=== PATIENT | male | born 1965 | race Two or more races ===

== ENCOUNTER → 2016-11-01 | Outpatient (CLI) | payer OTHER ==
[~2016-11-01] MED LIST: NORCO 5/325 TAB1 TAB PO; PREDNISONE PO; VICODIN 5/500 T1 TAB PO
[2016-11-01 13:50] LABS: BASOPHIL% 0.4 % (0-2.5); EOSINOPHIL# 0.4 X10e3 (0-0.7); EOSINOPHIL% 5.9 % (0.0-7.0); HEMATOCRIT 47.4 % (38.0-50.0); HEMOGLOBIN 15.7 gm/dL (13.0-16.0); LYMPHOCYTE# 1.4 X10e3 (1.0-3.5); LYMPHOCYTE% 18.6 % (17.0-45.0); MEAN CELL VOLUME 87.8 FL (83-96); MEAN CORPUSCULAR HEMOGLOBIN 29.1 PG (28-34); MEAN CORPUSCULAR HGB CONC 33.1 g/dL (30-36); MEAN PLATELET VOLUME 9.5 FL (6.5-11.5); MONOCYTE# 0.5 X10e3 (0-1.0); MONOCYTE% 6.4 % (3.0-12.0); NEUTROPHIL% 68.7 % (40-75); PLATELET COUNT 161 X10e3 (140-420); RED CELL DISTRIBUTION WIDTH 13.7 % (11.0-15.5); WHITE BLOOD COUNT 7.3 X10e3 (4.0-10.5)
[2016-11-01 13:51] LABS: DIFF IND NO
[2016-11-01 14:22] LABS: ALBUMIN SERUM 4.2 g/dL (3.5-5.0); BILIRUBIN,TOTAL 0.6 mg/dL (0.2-2.0); CALCIUM SERUM 9.4 mg/dL (8.4-10.2); CREATININE SERUM 0.8 mg/dL (0.6-1.4); GLOM FILT RATE Estimated 105.7 mL/min (>60); POTASSIUM 4.6 mmol/L (3.5-5.1); PROTEIN TOTAL SERUM 6.8 g/dL (6.0-8.3)
[2016-11-01 14:47] LABS: FOLATE (FOLIC ACID) 11.7 ng/mL (>5.8)
[2016-11-03 15:36] LABS: HA AB IGM (HEPPAN) Nonreactive (()); HB CORE AB IGM (HEPPAN) Nonreactive (Nonreactive); HB S AG (HEPPAN) Nonreactive (Nonreactive); HEP C AB (HEPPAN) Nonreactive (Nonreactive); HEP C AB SIGNAL TO CUTOFF 0.01 ratio (<1.00)
== END | disposition home or self-care (01) ==
LOC: CLAB 13:19
PROVIDERS: Nurse Practitioner
DX: H53.10 Unspecified subjective visual disturbances (principal); M54.2 Cervicalgia; R10.10 Upper abdominal pain, unspecified; R42 Dizziness and giddiness; Z13.220 Encounter for screening for lipoid disorders; Z13.29 Encounter for screening for other suspected endocrine disorder; Z13.6 Encounter for screening for cardiovascular disorders; Z11.3 Encounter for screening for infections with a predominantly sexual mode of transmission
CPT/HCPCS: 36415; 80053; 80061; 80074; 82607; 82746; 83036; 84443; 85025

== ENCOUNTER → 2016-11-23 | Outpatient (CLI) | payer OTHER ==
--- NOTE | ~2016-11-23 | CT17 ---
[facility] A Service of [facility] & [facility] RADIOLOGY TEXT RESULTS PATIENT: CLAIRE FRANKLIN LOCATION: [facility] : 69 UNIT #: [id number] AGE: [address]: JESSENIA TOTH SEX: M ORDER DR: [id number] [facility] [address] [place], [place] [address] [id number] O MR#: [id number] Acc #: [id number] NAME: CLAIRE FRANKLIN : 1965 SEX: M STUDY DATE/TIME: 11/23/2016 14:58 UNIT: [facility] ROOM: STUDY DESCRIPTION: CT Angio Head Attending Physician: Jessenia Toth Aprn Referring Physician: Jessenia Toth Aprn Ordering Physician: Jessenia Toth Aprn Primary Care Physician: Jessenia Toth Aprn MEDICAL IMAGING REPORT This report is preliminary unless electronic signature is present EXAM CT angiogram head and neck. HISTORY Visual disturbance. Vertigo and dizziness with standing for 2 years. Headache for 2 years. Head injury in [address] exam was performed with one or more of the following radiation dose reduction techniques: automatic exposure control, adjustment of mA and/or kV according to patient size, and iterative reconstruction. COMMENT CT angiogram of the head and neck vessels performed during the intravenous administration of 100 mL of Isovue-370. Imaging acquired in the axial plane followed by multiple reconstructed and reformatted images for the purpose of 3-D CT angiography of the head and neck vessels. Comparison head CT is from 11/23/2016. CT angiogram neck: The patient has bovine origin left common carotid artery. There is 0% stenosis suspected at great vessel origins from the arch. Assessment right carotid system shows about 20% diameter stenosis of proximal right internal carotid artery by NASCET criteria secondary to soft plaque. The right carotid siphon is widely patent. Evaluation of the left carotid system shows essentially 0% stenosis at the left carotid bifurcation. There is motion. The left carotid siphon is widely patent. Evaluation of the right vertebral artery shows vessel to be patent in the neck and intracranially. Evaluation of the left vertebral shows vessel to be patent in the neck and intracranially. Both vessels supply the STS. [facility] A Service of [facility] & [facility] RADIOLOGY TEXT RESULTS PATIENT: CLAIRE FRANKLIN LOCATION: [facility] : [birth year] UNIT #: [id number] AGE: [address]: JESSENIA TOTH SEX: M ORDER DR: honorio. The vertebral system is codominant. Assessment intracranial circulation shows no intracranial vascular cutoff. There is no focal central stenosis. There is an anterior communicating artery present. No intracranial aneurysm is suspected allowing for the technical limitation of CT angiography for assessment of the cranial nerves in particularly at the level of the skull base. Mild paranasal sinuses disease left posterior ethmoid air cells. No sinus air-fluid level. Mastoid air cells are clear. There are some paraseptal emphysematous changes in particular in the upper lungs. The dural venous sinuses are patent. IMPRESSION 1. By NASCET criteria about 20% diameter stenosis at the right carotid bifurcation, 0% stenosis at the left carotid bifurcation. Both vertebral arteries are patent and codominant. 2. No intracranial vascular cutoff. No focal central stenosis. Nothing to suggest intracranial aneurysm allowing for technical limitations of CTA at this institution. 3. Changes of paraseptal emphysema partly seen. Dictated by... Silvia Morgan M.D. THIS IS AN ELECTRONICALLY VERIFIED REPORT Silvia Morgan M.D. at 11/24/2016 2:52 PM BELA/mauro TD: 11/24/2016 11:15 JOB #: [id number] MEDICAL IMAGING REPORT Page 1 of 1 COPY
--- NOTE | ~2016-11-23 | CT23 ---
[facility] A Service of [facility] & [facility] RADIOLOGY TEXT RESULTS PATIENT: CLAIRE FRANKLIN LOCATION: [facility] : 69 UNIT #: [id number] AGE: [address]: JESSENIA TOTH SEX: M ORDER DR: [id number] [facility] [address] [place], [place] [address] [id number] O MR#: [id number] Acc #: [id number] NAME: CLAIRE FRANKLIN : 1965 SEX: M STUDY DATE/TIME: 11/23/2016 14:58 UNIT: [facility] ROOM: STUDY DESCRIPTION: CT Angio Neck Attending Physician: Jessenia Toth Aprn Referring Physician: Jessenia Toth Aprn Ordering Physician: Jessenia Toth Aprn Primary Care Physician: Jessenia Toth Aprn MEDICAL IMAGING REPORT This report is preliminary unless electronic signature is present EXAM CT angiogram neck. FINDINGS Result text under order number [id number]. Please see this order for result text. Dictated by... Silvia Morgan M.D. THIS IS AN ELECTRONICALLY VERIFIED REPORT Silvia Morgan M.D. at 11/24/2016 2:52 PM Amber TD: 11/24/2016 11:16 JOB #: [id number] MEDICAL IMAGING REPORT Page 1 of 1 COPY
--- NOTE | ~2016-11-23 | CT71 ---
[facility] A Service of [facility] RADIOLOGY TEXT RESULTS PATIENT: CLAIRE FRANKLIN LOCATION: [facility] : 69 UNIT #: [id number] AGE: [address]: JESSENIA TOTH SEX: M ORDER DR: [id number] [facility] [address] [place], [place] [address] [id number] O MR#: [id number] Acc #: [id number] NAME: CLAIRE FRANKLIN : 1965 SEX: M STUDY DATE/TIME: 11/23/2016 14:51 UNIT: [facility] ROOM: STUDY DESCRIPTION: CT Head Wo Contrast Attending Physician: Jessenia Toth Aprn Referring Physician: Jessenia Toth Aprn Ordering Physician: Jessenia Toth Aprn Primary Care Physician: Jessenia Toth Aprn MEDICAL IMAGING REPORT This report is preliminary unless electronic signature is present EXAM CT head without contrast 11/23/2016 HISTORY 50-year-old male with dizziness and headache for 2 years. Visual disturbance. COMPARISON CT head 01/28/2009. TECHNIQUE Routine unenhanced axial images performed through the brain. This CT exam was performed with one or more of the following radiation dose reduction techniques: automatic control, adjustment of mA and/or kV according to patient size, and iterative reconstruction. FINDINGS No hemorrhage, acute infarction, mass lesion, or abnormal extraaxial fluid collection. No midline shift or focal mass effect. Ventricular system is normal in size configuration. No acute bony abnormality. Visualized paranasal sinuses and mastoid air cells are clear. IMPRESSION No acute intracranial abnormality Dictated by... Fab Caruso M.D. THIS IS AN ELECTRONICALLY VERIFIED REPORT Fab Caruso M.D. at 11/24/2016 5:06 PM CHARBEL/carlos a TD: 11/23/2016 17:18 [facility] A Service [facility] RADIOLOGY TEXT RESULTS PATIENT: CLAIRE FRANKLIN LOCATION: [facility] : 69 UNIT #: [id number] AGE: [address]: JESSENIA TOTH SEX: M ORDER DR: JOB #: [id number] MEDICAL IMAGING REPORT Page 1 of 1 COPY
== END | disposition home or self-care (01) ==
LOC: CCAT 13:48
DX: H53.10 Unspecified subjective visual disturbances (principal); I65.21 Occlusion and stenosis of right carotid artery; J43.8 Other emphysema; M54.2 Cervicalgia; R51 Headache; R42 Dizziness and giddiness
CPT/HCPCS: 70450; 70496; 70498; Q9967